=== PATIENT | male | born 2000 | race Two or more races ===

== ENCOUNTER 2025-01-26 02:31 | Emergency (ER) | payer SELFPAY ==
[2025-01-26 02:32] VITALS: BP 129/77; PULSE 98; RESP 19; TEMP 37.2; O2SAT 97
[2025-01-26 02:34] VITALS: BMI 27.3
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
== END 2025-01-26 03:26 ==
PROVIDERS: Emergency Provider Emergency Medicine
DX: Z02.89 Encounter for other administrative examinations (principal); Z04.1 Encounter for examination and observation following transport accident
CPT/HCPCS: 99281